=== PATIENT | male | born 1975 | race African-American/Black ===

== ENCOUNTER → 2016-11-05 | Outpatient (CLI) | payer OTHER ==
--- NOTE | 2016-11-05 11:25 | MR ---
EXAMINATION TYPE: MR shoulder RT wo con DATE OF EXAM: 11/05/2016 11:17 AM COMPARISON: NONE HISTORY: Right shoulder pain, injury TECHNIQUE: Multiplanar, multisequence imaging of the right shoulder is performed without contrast. FINDINGS: Rotator Cuff: At the insertion of the infraspinatus tendon there is a complete through thickness tear measuring approximately 12 x 3 mm. Diffuse abnormal signal seen throughout the distal margin of the conjoined portion of the tendon of the supraspinatus and infraspinatus tendons. There is a through th ickness tear involving the insertion of the anterior fibers of the supraspinatus tendon measuring 7 m m. Acromioclavicular Joint: Mild hypertrophic change of the AC joint is seen. There is mild mass effect and impingement. Glenohumeral Joint: Small glenohumeral joint effusion is seen. Inferior glenohumeral ligament intact. Labrum: Findings are suggestive of a SLAP tear. Biceps Tendon: The long head of biceps is in normal location within bicipital groove. Increased fluid surrounding the bicipital tendon compatible with bicipital tendinosis. Intrasubstance signal seen in the biceps anchor suggestive of tendinosis. No retraction or through thickness tear Bone marrow signal: 1 cm focal area of marrow edema involving the greater tuberosity compatible with bone contusion. Other: No additional significant abnormality is appreciated. IMPRESSION: 1. Diffuse tendinosis of the supra and infraspinatus tendons with through thickness tear involving th e distal margin of the infraspinatus and supraspinatus tendons as discussed above. 2. SLAP tear. 3. bicipital tendinosis for hypertrophic change of the AC joint with mild impingement
== END | disposition home or self-care (01) ==
LOC: RADMRIMAIN 10:43
PROVIDERS: ATTEND Internal Medicine
DX: S43.431A Superior glenoid labrum lesion of right shoulder, initial encounter (principal); M75.101 Unspecified rotator cuff tear or rupture of right shoulder, not specified as traumatic; M75.21 Bicipital tendinitis, right shoulder; M25.811 Other specified joint disorders, right shoulder; X58.XXXA Exposure to other specified factors, initial encounter

== ENCOUNTER → 2016-11-27 | Outpatient (CLI) | payer OTHER ==
--- NOTE | 2016-11-28 15:43 | MR ---
EXAMINATION TYPE: MR shoulder LT wo con DATE OF EXAM: 11/27/2016 3:25 PM COMPARISON: 11/05/2016 right shoulder MR. HISTORY: Left shoulder pain TECHNIQUE: Multiplanar, multisequence imaging of the left shoulder is performed without contrast. FINDINGS: Rotator Cuff: There is a full-thickness tear of the supraspinatus and infraspinatus tendons with extr insic tendinous and muscular hyperintensity on fluid sensitive sequences related to associated inflam mation/tendinopathy. There is retraction of the supraspinatus of approximately 4.6 cm with few distal fibers seen at the footplate of the humeral head, discontinuous with the proximal retracted musculot endinous junction of the supraspinatus. There is no evidence of overt muscular atrophy. Joint fluid i s seen within the subacromial bursa and subcoracoid bursa. The full-thickness tear of the infraspinat us is retracted approximately 4 cm also with hyperintensity of the muscle belly related to myositis. Minimal signal hyperintensity is seen within the anterior and proximal fibers of the teres minor like ly related to a reactive myositis from the adjacent infraspinatus full-thickness tear. Similar appear ance is seen of the more anterior and superficial fibers of the subscapularis relating to mild myosit is. Acromioclavicular Joint: Acromioclavicular joint is overall unremarkable with no evidence of capsular hypertrophy or subchondral cyst formation. No marginal osteophytes are seen. Acromioclavicular ligam ents are intact. Glenohumeral Joint: There is no evidence of joint space narrowing. Joint fluid is seen again within t he subacromial/subdeltoid and subcoracoid bursa. Labrum: Overall the labrum appears intact. Biceps anchor also appears intact in its superior aspect. Biceps Tendon: Biceps tendon appears intact and inserts in the biceps anchor. Bone marrow signal: Bone marrow signal is grossly unremarkable. Other: No additional significant abnormality is appreciated. Humeral head is high riding related to t he rotator cuff tears. IMPRESSION: 1. Full-thickness tears of the supraspinatus and infraspinatus with retraction and myositis. 2. Mild myositis of the teres minor and subscapularis. 3. Subdeltoid/subacute subacromial and subcoracoid fluid which may relate to bursitis.
== END ==
LOC: RADMRIMAIN 14:48
PROVIDERS: ATTEND Orthopaedic Surgery
DX: M75.102 Unspecified rotator cuff tear or rupture of left shoulder, not specified as traumatic (principal); M60.9 Myositis, unspecified

== ENCOUNTER → 2016-11-30 | Outpatient (CLI) | payer OTHER ==
[2016-11-30 13:46] LABS: Basophils % (A) 0 %; CH 31.3; CHCM 33.6; Eosinophils # (A) 0.1 k/uL (0-0.7); Eosinophils % (A) 1 %; HCT 43.7 % (39.0-53.0); HGB 14.7 gm/dL (13.0-17.5); Luc # (Auto) 0.27; Luc % (Auto) 3; Lymphocytes % (A) 45 %; MCH 31.6 pg (25.0-35.0); MCHC 33.7 g/dL (31.0-37.0); MCV 93.7 fL (80.0-100.0); Mean Platelet Volume 6.5; Monocytes # (A) 0.4 k/uL (0-1.0); Monocytes % (A) 5 %; Neutrophils # (A) 4.1 k/uL (1.3-7.7); Neutrophils % (A) 46 %; RBC 4.66 m/uL (4.30-5.90); RDW 12.8 % (11.5-15.5); WBC 8.9 k/uL (3.8-10.6); WBC (Perox) 9.24
[2016-11-30 13:50] LABS: Potassium 4.2 mmol/L (3.5-5.1)
== END | disposition home or self-care (01) ==
LOC: LABPAT 13:14
PROVIDERS: ATTEND Orthopaedic Surgery
DX: Z01.818 Encounter for other preprocedural examination (principal); M75.41 Impingement syndrome of right shoulder
CPT/HCPCS: 80051; 85025

== ENCOUNTER 2016-12-09 05:48 | Day surgery (SDC) | payer OTHER ==
[2016-12-08 08:30] VITALS: BMI 25.0
--- NOTE | 2016-12-08 16:42 | HP ---
DATE OF ADMISSION: 12/09/2016 Lisandro Rachel is a 41-year-old patient seen with progressive right shoulder pain. After having treatment options discussed, he elected to proceed with right shoulder arthroscopy. Consent regarding the procedure was obtained. His past medical history is noncontributory. His past surgical history is noncontributory. DAILY MEDICATIONS: [place] as needed. ALLERGIES: NONE REPORTED. SOCIAL HISTORY: Patient denies current tobacco use. PHYSICAL EVALUATION OF THE RIGHT SHOULDER: Flexion 90 degrees, abduction 90 degrees, external rotation 50 degrees with pain and weakness. Tenderness along the anterolateral acromion and rotator cuff insertion. Impingement positive 90 degrees. Drop-arm sign is positive. Distal neurovascular exam is intact. Right shoulder radiographs revealed a type II anterior acromion, acromioclavicular joint osteoarthritis. An MRI of the right shoulder revealed a rotator cuff tear along with labral tear and biceps tendinitis. IMPRESSION: Right shoulder impingement with rotator cuff tear, labral tear and biceps tendinitis. PLAN: Right shoulder arthroscopy with subacromial decompression, probable arthroscopic rotator cuff repair, probable biceps tenotomy, possible Chelsea and debridement.
[~2016-12-09 05:48] MED LIST: DEXAMETHASONE SOD PHOSPHATE 10 MG/ML 1 ML VIAL IV ONE; HYDROmorphone 1 MG/ML 1 ML SYRINGE IVP PRN; LACTATED RINGERS 1,000 ML IV SCH; LIDOCAINE 1% 20 ML VIAL (10MG/ML) FOR IV START INTRADERMA PRN; MIDAZOLAM 2 MG/2 ML VIAL IV PRN; ONDANSETRON 4 MG/2 ML VIAL IVP ONE; SCOPOLAMINE 1.5MG/72HR PATCH TRANSDERM ONE; ceFAZolin 2 GM in SODIUM CHLORIDE 0.9% 100 ML IVPB ONE
[2016-12-09] MEDS ORDERED: fentaNYL (PF) 50 MCG/ML 2 ML AMP IV ONE (07:00)
[2016-12-09] MEDS ORDERED: LIDOCAINE 2%-EPI 1:100,000 20 ML VIAL ONE (07:28)
[2016-12-09] MEDS ORDERED: NEOSTIGMINE 1 MG/ML 10 ML VIAL ONE (07:28)
[2016-12-09] MEDS ORDERED: GLYCOPYRROLATE 0.2 MG/ML 2 ML VIAL ONE ×2 (07:28)
[2016-12-09] MEDS ORDERED: SUCCINYLCHOLINE CHLORIDE 100 MG/5 ML SYR IV ONE (07:28)
[2016-12-09] MEDS ORDERED: fentaNYL (PF) 50 MCG/ML 2 ML AMP ONE (07:28)
[2016-12-09] MEDS ORDERED: PROPOFOL 10 MG/ML 20 ML VIAL IV ONE (07:28)
[2016-12-09] MEDS ORDERED: MIDAZOLAM 2 MG/2 ML VIAL ONE (07:28)
[2016-12-09] MEDS ORDERED: ROCURONIUM BROMIDE 10 MG/ML 10 ML VIAL IV ONE (07:28)
[2016-12-09] MEDS ORDERED: ROPIVACAINE 5 MG/ML 30 ML VIAL ONE (07:28)
[2016-12-09] MEDS ORDERED: LIDOCAINE 1% INJ 10MG/ML (20 ML MDV) ONE ×2 (07:28)
--- NOTE | 2016-12-09 07:59 | P.ONQ ---
Anesthesiology Proc Note - PNB - Peripheral Nerve Block Performed Right Interscalene Single Time Out Performed: Yes Indication: Acute Post-Operative Pain, Analgesia Specifically requested for management of pain by DrRyan: Bayron Aguilar Sedation Type: Awake Preparation: Sterile Prep Position: Supine Catheter: None Needle Types: Other (see comment) (stimuplex) Needle Size: 50mm (2") Needle Gauge: Other (see comment) (22 ga) Injectate: Other (see comment) (lidocaine 2% 10cc Ropivicaine 0.5% 10cc) Adjunct: Epinephrine (see comment for dilution ratio) (1:200,000) Blood Aspirated: No Pain Paresthesia on Injection Noted: No Resistance on Injection: Normal Events: Uneventful and Well Tolerated
--- NOTE | 2016-12-09 10:14 | P.OP ---
Date of Procedure: 12/09/16 Preoperative Diagnosis: Right shoulder impingement Postoperative Diagnosis: 1. Right shoulder rotator cuff tear 2. Right shoulder impingement 3. Right shoulder acromioclavicular joint osteoarthritis 4. Right shoulder partial biceps tendon tear 5. Right shoulder superior labral tear Procedure(s) Performed: 1. Right shoulder arthroscopic rotator cuff repair 2. Right shoulder arthroscopic subacromial decompression 3. Right shoulder arthroscopic Chelsea procedure 4. Right shoulder arthroscopic biceps tenotomy 5. Right shoulder arthroscopic debridement labral tear Implants: 6-valeris peek anchors Anesthesia: GETA, regional (Shoulder block) Surgeon: Bayron Aguilar [place] [employer] Leader #1: Sergio Boswell Estimated Blood Loss (ml): 10 Pathology: none sent Condition: stable Disposition: PACU Indications for Procedure: 41-year-old patient seen with right shoulder pain. After having treatment options discussed elected to proceed with arthroscopy. Operative Findings: See description of procedure Description of Procedure: Patient underwent a shoulder block by department of anesthesia. The patient was then taken to the operative suite. The patient underwent a general anesthetic by the department of anesthesia. The patient was placed into a lateral position and secured. There was appropriate padding of the bony prominence. Right shoulder was then prepped and draped in normal sterile orthopedic fashion. We placed the extremity in 10 pounds of longitudinal traction. A posterior incision was now made for a posterior working portal site. The trocar and cannula were inserted into the glenohumeral joint. Arthroscopy was initiated. Spinal needle was now inserted anteriorly, to ascertain the anterior working portal site. An incision was now made in that area, a trocar was inserted followed by a probe. There was an obvious large rotator cuff tear visualized from glenohumeral side. There was partial tearing long head biceps tendon. There was tearing of the anterior superior labrum present. There were grade 1/2 chondromalacia changes of glenohumeral. No loose bodies. I performed an arthroscopic biceps tenotomy. I debrided the labral tear down to stable tissue. The residual labrum was probed and found to be stable. Instruments were now removed from glenohumeral joint. Utilizing the posterior working portal site, the trocar and cannula were inserted into the subacromial space. Arthroscopy initiated. I made an incision 2 fingerbreadths lateral to the acromion. I introduced my trocar followed by my ArthroCare ablator. I now began ablating thick subacromial bursal tissue, which exposed the undersurface of the anterior acromion. This was diminished subacromial space. There was a very prominent anterior acromion. A motorized bur was introduced and a subacromial decompression was performed. I also excised some osteophytes off the inferior aspect of the distal clavicle. The AC joint was visualized and noted to be fairly arthritic. Our motorized bur was introduced in the anterior portal site and a Chelsea procedure was performed without difficulty, decompressing the AC joint nicely. I turned my attention to the rotator cuff. There was a large rotator cuff tear measuring somewhere between 3-4 cm but mobile over the footprint. I noted that the posterior portion had a [id number] type tear. I abraded the footprint with a motorized bur. I now created 2 additional typecasting machine operator he portal sites off the lateral acromion to repair this very large/massive tear. I now repaired that posterior portion of the tear with 2 [id number] sutures. I now introduced 3 medial row anchors all with 2 sutures. I now passed all 12 limbs of suture through good bites of rotator cuff tendon. I now crisscrossed the sutures and introduced 3 lateral anchors bringing the tendon over the footprint and compressing it very nicely. All residual suture limbs were clipped. The repair was probed and noted to be very stable. I injected 1 mL of Allogen into the footprint repair site. Instruments now removed from the portal sites. All portal sites were approximated with nylon suture. Sterile dressings were applied followed by a shoulder immobilizer. Tyler STALLINGS assisted with the procedure. The patient was awakened, transferred to a bed, and taken to recovery in stable condition.
[2016-12-09 10:22] VITALS: TEMP 96.9
[2016-12-09] MEDS ORDERED: MEPERIDINE 50 MG/ML SYRINGE IVP ONE (10:39)
[2016-12-09 10:49] VITALS: RESP 16
[2016-12-09] MEDS ORDERED: LACTATED RINGERS 1,000 ML IV ONE (10:53)
[2016-12-09] MEDS ORDERED: ONDANSETRON 4 MG/2 ML VIAL IVP ONE (11:02)
[2016-12-09 11:57] VITALS: BP 138/93; PULSE 60
== END 2016-12-09 13:03 | disposition home or self-care (01) ==
LOC: OR 05:48
PROVIDERS: ATTEND Orthopaedic Surgery
DX: M75.101 Unspecified rotator cuff tear or rupture of right shoulder, not specified as traumatic (principal); M75.41 Impingement syndrome of right shoulder; M19.011 Primary osteoarthritis, right shoulder; S46.112A Strain of muscle, fascia and tendon of long head of biceps, left arm, initial encounter; S43.431A Superior glenoid labrum lesion of right shoulder, initial encounter; X58.XXXA Exposure to other specified factors, initial encounter; Z91.012 Allergy to eggs; Z79.899 Other long term (current) drug therapy
CPT/HCPCS: 64415; 29824; 29826; 29827; C1713 ×3; J2250; J1100; J2710; J2175; J0690; J2405; J2001; J3010; J2795; J0330; J2704

== ENCOUNTER 2017-01-23 01:56 | Emergency (ER) | payer OTHER ==
[2017-01-23 02:02] VITALS: TEMP 97.3
[2017-01-23] MEDS ORDERED: METOCLOPRAMIDE 5 MG/ML 2 ML VIAL IM STA (02:12)
[2017-01-23] MEDS ORDERED: MORPHINE SULFATE 4 MG/ML SYRINGE IM STA (02:12)
--- NOTE | 2017-01-23 03:49 | CT ---
EXAM: CT Head Without Intravenous Contrast CLINICAL HISTORY: Headache, seizures. History of strokes. TECHNIQUE: Axial computed tomography images of the head/brain without intravenous contrast. CTDI is 57.40 mGy and DLP is 1098.80 mGy-cm. This CT exam was performed using one or more of the following dose reduction techniques: automated exposure control, adjustment of the mA and/or kV according to patient size, and/or use of iterative reconstruction technique. Coronal and sagittal reformatted images were created and reviewed. COMPARISON: No relevant prior studies available. FINDINGS: Brain: No acute intracranial hemorrhage, mass effect, midline shift or herniation. Ventricles: No evidence of hydrocephalus. Bones/joints: Mild chronic appearing deformity of the left nasal bone. No acute fracture. Soft tissues: Unremarkable. Sinuses: Essentially clear. Mastoid air cells: Unremarkable as visualized. No mastoid effusion. IMPRESSION: No acute intracranial hemorrhage or mass effect.
--- NOTE | 2017-01-23 03:52 | ED ---
Headache HPI - General Chief Complaint: Headache Stated Complaint: Headache Time Seen by Provider: 01/23/17 02:13 Mode of arrival: wheelchair Limitations: no limitations - History of Present Illness MD Complaint: headache Onset/Timin -: days(s) Onset Description: gradual Location: frontal Severity: severe Quality: aching Consistency: constant Improves With: nothing Worsens With: none Context: occurred at rest - Related Data Home Medications Medication Instructions Recorded Confirmed Cetirizine HCl [Zyrtec] 10 mg PO DAILY 12/08/16 12/08/16 Hydrocodone/Acetaminophen [[place] 1 tab PO Q6HR PRN 12/08/16 12/08/16 7.5-325] Previous Rx's Medication Instructions Recorded HYDROcodone/APAP 7.5-325MG [[facility] 1 each PO Q6HR PRN #40 tab 12/09/16 7.5] Allergies Allergy/AdvReac Type Severity Reaction Status Date / Time cat dander Allergy Unknown Verified 01/23/17 02:03 mold Allergy Unknown Verified 01/23/17 02:03 soy Allergy Unknown Verified 01/23/17 02:03 eggs Allergy Nausea & Uncoded 01/23/17 02:03 Vomiting & Diarrhea tape Allergy Swelling Uncoded 01/23/17 02:03 Review of Systems ROS Statement: Those systems with pertinent positive or pertinent negative responses have been documented in the HPI. ROS Other: All systems not noted in ROS Statement are negative. Constitutional: Denies: fever, weakness Eyes: Denies: eye pain, vision change ENT: Denies: hearing loss, congestion Respiratory: Denies: cough, dyspnea, wheezes Cardiovascular: Denies: chest pain, syncope Gastrointestinal: Denies: abdominal pain Musculoskeletal: Denies: back pain Skin: Denies: rash Neurological: Reports: headache. Denies: weakness, numbness, paresthesias, confusion Past Medical History Additional Past Medical History / Comment(s): frequent migranes r/t allergies, hypoglycemia History of Any Multi-Drug Resistant Organisms: None Reported Past Surgical History: Appendectomy, Orthopedic Surgery Additional Past Surgical History / Comment(s): right rotator cuff Past Psychological History: Anxiety Smoking Status: Former smoker Past Alcohol Use History: Rare Past Drug Use History: Marijuana General Exam Limitations: no limitations General appearance: alert, in no apparent distress Head exam: Present: atraumatic, normocephalic Eye exam: Present: normal appearance. Absent: scleral icterus, conjunctival injection ENT exam: Present: normal oropharynx, TM's normal bilaterally Neck exam: Present: normal inspection, full ROM GI/Abdominal exam: Present: soft Extremities exam: Present: normal inspection, normal capillary refill. Absent: pedal edema, calf tenderness Neurological exam: Present: alert, oriented X3, CN II-XII intact. Absent: motor sensory deficit Skin exam: Present: warm, dry, intact, normal color. Absent: rash Course Vital Signs 01/23/17 01/23/17 01:57 04:00 Temperature 97.3 F L Pulse Rate 49 L 70 Respiratory 20 16 Rate Blood Pressure 138/80 118/66 O2 Sat by Pulse 99 Oximetry Disposition Clinical Impression: Headache Disposition: HOME SELF-CARE Condition: Good Instructions: Acute Headache (ED) Referrals: Keturah Ruiz MD [Primary Care Provider] - 1-2 days Amanda Hubbard MD [STAFF PHYSICIAN] - 1-2 days
[2017-01-23 04:02] VITALS: BP 118/66; PULSE 70; RESP 16
[2017-01-23] MEDS ORDERED: diphenhydrAMINE 50 MG/ML 1 ML VIAL IM STA (04:02)
== END 2017-01-23 04:11 | disposition home or self-care (01) ==
LOC: EC 01:56
DX: R51 Headache (principal); Z87.891 Personal history of nicotine dependence; Z79.899 Other long term (current) drug therapy; Z91.048 Other nonmedicinal substance allergy status; Z91.012 Allergy to eggs; Z91.013 Allergy to seafood; Z86.69 Personal history of other diseases of the nervous system and sense organs
CPT/HCPCS: 70450; 99283; 96372 ×3; J2270; J1200; J2765

== ENCOUNTER → 2019-10-05 | Outpatient (CLI) | payer OTHER ==
--- NOTE | 2019-10-06 17:21 | US ---
EXAMINATION TYPE: US scrotum with doppler. Grayscale and color Doppler Duplex imaging performed of cm bustos scrotum. DATE OF EXAM: 10/05/2019 COMPARISON: NONE CLINICAL HISTORY: R68.89 Other general symptoms and signs. Patient stated has right scrotal pain and swelling x 2 months EXAM MEASUREMENTS: TESTICLES: Right Testicle: 4.7 x 2.8 x 2.3 cm Left Testicle: 3.9 x 2.2 x 1.6 cm EPIDIDYMIS HEAD: Right Epididymis: 1.3 x 0.9 x 1.3 cm Left Epididymis: 1.0x 1.0 x 0.9 cm Doppler performed to assess for testicular vascularity; good bilateral color flow and waveforms are s een. There is no evidence of testicular torsion. Presence of hydroceles: small hydrocele noted superior right scrotal sac = 1.7 x 1.5 x 1.1cm Right epididymal head cyst noted = 0.3 x 0.3 x 0.2cm. Multiple left epididymal head cysts seen with largest =0.2 x 0.4 x 0.2cm. Presence of varicoceles: Bilateral varicoceles noted as some veins measure greater than normal 2.5mm with and without Valsalva Maneuver. IMPRESSION: 1. Bilateral varicoceles. 2. Small right hydrocele 3. Bilateral epididymal cysts
== END | disposition home or self-care (01) ==
LOC: RADUSWWP 14:45
PROVIDERS: ATTEND Internal Medicine
DX: I86.1 Scrotal varices (principal); N43.3 Hydrocele, unspecified; N50.3 Cyst of epididymis
CPT/HCPCS: 76870; 93975

== ENCOUNTER → 2021-01-14 | Outpatient (CLI) | payer OTHER ==
[2021-01-14 12:53] VITALS: BP 164/84; PULSE 70; RESP 18; TEMP 98.4
--- NOTE | 2021-01-14 13:32 | P.PAINCN ---
History of Present Illness - Reason for Consult Consult date: 01/14/21 - History of Present Illness This is 45 years old male with a chronic history of severe neck pain and headaches started several years ago but the intensity of the headache increased over the last few months, it is constant interfere with the quality of life he tried different kind of pain medication without any relief and he tried physical therapy without relief, previously he had the occipital nerve block which was done several years ago which helped his headaches significantly, patient denies any motor or sensory deficit he denies any change in the bowel movement or urination he denies any numbness or tingling sensation in the upper extremities, patient was evaluated by neurologist Dr. Lang, and she referred him to have bilateral occipital nerve block, Past Medical History Past Medical History: GERD/Reflux Additional Past Medical History / Comment(s): "Nightly severe migraines since starting 1 day after receiving first Moderna Vaccine." Frequent migranes r/t allergies, hypoglycemia. History of Any Multi-Drug Resistant Organisms: None Reported Past Surgical History: Appendectomy, Orthopedic Surgery Additional Past Surgical History / Comment(s): Right rotator cuff repair, removal of benign tumors from right chest and left hip. Past Anesthesia/Blood Transfusion Reactions: No Reported Reaction, Motion Sickness Smoking Status: Current some day smoker, Light tobacco smoker - Past Family History Mother Family Medical History: Cancer Additional Family Medical History / Comment(s): Pancreatic Cancer. Medications and Allergies Home Medications Medication Instructions Recorded Confirmed Type SUMAtriptan SUCCINATE [Imitrex] 50 mg PO DIRECTED PRN 01/13/21 01/14/21 History Sumatriptan Spary 1 spray NASAL DIRECTED PRN 01/13/21 01/14/21 History Vit C/E/Zn/Coppr/Lutein/Zeaxan 1 each PO DAILY 01/13/21 01/14/21 History [Preservision Areds 2 Softgel] Allergies Allergy/AdvReac Type Severity Reaction Status Date / Time alcohol Allergy Cough Verified 01/13/21 14:58 cat dander Allergy Unknown Verified 01/13/21 13:04 latex Allergy Blisters Verified 01/13/21 13:29 mold Allergy Unknown Verified 01/13/21 13:04 Penicillins Allergy Migraines Verified 01/13/21 14:58 soy Allergy Unknown Verified 01/13/21 13:04 eggs Allergy Nausea & Uncoded 01/13/21 13:04 Vomiting & Diarrhea tape Allergy Swelling Uncoded 01/13/21 13:04 Physical Exam Vitals: Vital Signs Temp Pulse Resp BP Pulse Ox 01/14/21 12:47 98.4 F 70 18 164/84 98 Physical Examinations : -Constitutiona : Cooperative , not in acute distress . -HEENT : nech : supple , no Lymphadenopathy , normal thyroid size . : eyes : no ptosis , no icterus, no photophobia . - neurologic : Cranial nerve II to XII intact , no focal neurological deffecit . -psychatric : alert , oriented X 3 , appropriate affect , intact judgment and insight . -Lymphatic : no Lymphadenopathy . - musculoskeltal : Cervical Spine motor stregnth in the deltoid and biceps, normal right side , normal Left side motor stregnth biceps and the wrist extensors normal right side ,normal left side . motor stregnth in the triceps muscle . normal Right side , normal Left side deep tendon reflexes normal at the biceps , normal at Brachioradialis , normal at triceps. cervical facet loading test: Positive Bilaterally Severe tenderness over the occipital nerve bilaterally Lumber spine moter stegnth lower extremities ,thigh and legs 5/5 Right side , 5/5 Left side Results Comments: MRI of the brain =normal Assessment and Plan Plan: Assessment and plan=1-bilateral occipital neuralgia. 2-cervicogenic headache. 3-cervical spondylosis with cervical facet arthropathy. Patient will be good candidate to have bilateral occipital nerve block, Time with Patient: Greater than 30 PQRS Measure Charge Sheet Measure #130: Documentation of Current Meds in Medical Chart: Patient's medications documented in chart Measure #226: Tobacco Use: Screen & Cessation Intervention: Pt not a tobacco user Measure #111: Pneumonia Vaccination: Pneumococcal vaccine NOT administered or previously given Measure #47: Advance Care Plan: Advance care planning discussed & documented, pt chose/unable to give Measure #412: Opioid Treatment Agreement: No documentation of signed opioid treatment agreement Measure #408: Opioid Therapy Follow-up Evaluation: Patient had NO f/u eval minimum every 3 months during opioid therapy Measure #317: Preventitive Care & Scrn High Bld Press & F/U: Pre-hypertensive or hypertensive BP documented, pt will f/u with PCP Measure #128: Body Mass Index (BMI) Screening & Follow-up: BMI documented within normal parameters Measure #131: Pain Assessment & Follow-up: Pain positive & plan documented, Follow-up scheduled Measure #431: Unhealthy Alcohol Use Preventative Care & Scrn: Patient not identified as an unhealthy alcohol user PQRS Narrative: Smoking Status Former smoker Blood Pressure 164/84 Pain Intensity [Head] 2 Scale Used Numeric (1 - 10) Hx Alcohol Use (MH) No Home Medications: Ambulatory Orders SUMAtriptan SUCCINATE [Imitrex] 50 mg PO DIRECTED PRN 01/13/21 Sumatriptan Spary 1 spray NASAL DIRECTED PRN 01/13/21 Vit C/E/Zn/Coppr/Lutein/Zeaxan [Preservision Areds 2 Softgel] 1 each PO DAILY 01/13/21
== END ==
LOC: PNWHC3 12:36
PROVIDERS: ATTEND Specialist
DX: M47.812 Spondylosis without myelopathy or radiculopathy, cervical region (principal); M54.81 Occipital neuralgia; F17.200 Nicotine dependence, unspecified, uncomplicated; Z88.0 Allergy status to penicillin; Z91.048 Other nonmedicinal substance allergy status; Z91.040 Latex allergy status; Z91.012 Allergy to eggs; Z91.018 Allergy to other foods; Z91.09 Other allergy status, other than to drugs and biological substances
CPT/HCPCS: 99211

== ENCOUNTER 2021-01-27 11:19 | Day surgery (SDC) | payer OTHER ==
[2021-01-23 15:00] VITALS: BMI 24.4
[~2021-01-27 11:19] MED LIST changes: -DEXAMETHASONE SOD PHOSPHATE 10 MG/ML 1 ML VIAL IV ONE; -HYDROmorphone 1 MG/ML 1 ML SYRINGE IVP PRN; -LIDOCAINE 1% 20 ML VIAL (10MG/ML) FOR IV START INTRADERMA PRN; -MIDAZOLAM 2 MG/2 ML VIAL IV PRN; -ONDANSETRON 4 MG/2 ML VIAL IVP ONE; -SCOPOLAMINE 1.5MG/72HR PATCH TRANSDERM ONE; -ceFAZolin 2 GM in SODIUM CHLORIDE 0.9% 100 ML IVPB ONE
[2021-01-27 12:43] VITALS: TEMP 97.5
[2021-01-27] MEDS ORDERED: LIDOCAINE 1% (10MG/ML) FOR IV START INTRADERMA ONE (12:46)
[2021-01-27] MEDS ORDERED: fentaNYL (PF) 50 MCG/ML 2 ML AMP IV ONE (12:46)
[2021-01-27] MEDS ORDERED: TRIAMCINOLONE ACETONIDE 40 MG/ML 1 ML VIAL ONE (13:10)
[2021-01-27] MEDS ORDERED: MIDAZOLAM 2 MG/2 ML VIAL ONE (13:10)
[2021-01-27] MEDS ORDERED: ROPIVACAINE 5MG/ML 20ML VIAL ONE (13:10)
--- NOTE | 2021-01-27 13:27 | P.PCN ---
Date of Procedure: 01/27/21 Surgeon: Su Parra Pathology: none sent Condition: stable Disposition: PACU Description of Procedure: Pre-operative diagnosis: 1- B/L occipital neuralgea Post Operative Diagnosis 1- B/L occipital neuralgea Procedure: 1- B/L occipital nerve block ANESTHESIA: IV Moderate conscious sedation EBL: Minimal PROCEDURE INDICATION: The patient with neck pain and headache secondary to occipital neuralgea unresponsive to conservative treatments. PROCEDURE DESCRIPTION / TECHNIQUE: The patient was seen and identified in the preoperative area. Risks, benefits, complications, and alternatives were discussed with the patient, the patient agreed to proceed with the procedure and signed the consent. IV was started. Vital signs remained stable throughout the procedure. Patient was taken to the OR and time out was completed. The patient was placed in the prone position on the procedure table. A pillow was placed under the patients chest to increase the cervical interlaminar space. The cervical area and right occiptial area were prepped with chloraprep. Critical pause was taken. Vital signs were closely monitored during the procedure. Conscious sedation was used during the procedure to decrease patients anxiety. The the occipital exuberance and superior nuchal line were identified on the right side of the occiput. The greater occipital nerve location was estimated to be medial to the occipital artery I used 25-gauge 1-1/2 inch needle to go through the skin and infiltrate 1.5 MLS of a solution made up of 5 MLS Ropivacaine 0.5% +40 mg of Kenalog. The opposite side was done in the same manner. The total dose of Kenalog used for this procedure was 20 mg only. Patient tolerated procedure well.
[2021-01-27] MEDS ORDERED: IV FLUID CONTINUATION 1,000 ML IV ONE (13:31)
[2021-01-27 13:34] VITALS: RESP 16
[2021-01-27 13:43] VITALS: BP 134/87; PULSE 77
== END 2021-01-27 14:04 | disposition home or self-care (01) ==
LOC: ORPAIN 11:19
PROVIDERS: ATTEND Anesthesiology
DX: M54.81 Occipital neuralgia (principal); Z88.0 Allergy status to penicillin; Z91.040 Latex allergy status
CPT/HCPCS: 64405; J2250; J3301; J3010; J2795

== ENCOUNTER → 2021-02-10 | Day surgery (SDC) | payer OTHER ==
[2021-02-05 14:37] VITALS: BMI 24.7
[~2021-02-10] MED LIST changes: +ROPIVACAINE 5MG/ML 20ML VIAL ONE; +methylPREDNISolone ACETATE 40 MG/ML 1 ML VIAL ONE
[2021-02-10 12:21] VITALS: TEMP 98.3
--- NOTE | 2021-02-10 12:28 | P.PCN ---
Date of Procedure: 02/10/21 Procedure(s) Performed: Preoperative diagnoses= 1- Greater occipital neuralgia. 2-cervical spondylosis. 3-cervicogenic headache. Postoperative diagnoses= same as preoperative diagnosis. Procedure= Bilateral Greater occipital nerve block Anesthesia= local infiltration with ropivacaine 0.5% 4 mL only Estimated blood loss=minimal. Procedure indication= the patient had a history of severe chronic neck pain ,and headache, diagnosed with occipital neuralgia exam was positive for severe tenderness over the occipital nerve bilaterally, she will be a good candidate occipital nerve block, patient failed conservative management Procedure description= the patient was seen and identified in the preoperative holding area, risks and benefits and alternative of the procedure and possible complications discussed with the patient, and he agreed with the preceding, patient signed the consent, an IV was started, and vital signs were monitored and were stable throughout the procedure, patient was placed in the sitting position or table and the neck area was prepped and draped with a sterile fashion, vital signs were closely monitored during the procedure, 25-gauge needle advanced 1 inch lateral to the occipital protuberance on the right side, at the location of the right occipital nerve , then after negative aspiration for heme and CSF and there was no paresthesia during the injection, 6 ml of Robivacaine 0.5% and 40 mg of Depo-Medrol injected after negative aspiration, the needle removed, and the entire same procedure was repeated for the left Greater occipital nerve. Patient tolerated the procedure well without any complication, The patient returned to supine position after the back was cleaned and a Band- Aid applied, the patient transported to recovery room in stable condition and he was monitored for 30 minutes before he was discharged home and then patient was reexamined before going home and patient was discharged in stable condition and patient will follow up with the pain clinic in a few weeks.
[2021-02-10 12:48] VITALS: BP 137/89; PULSE 79; RESP 17
== END ==
LOC: ORPAIN 11:58
PROVIDERS: ATTEND Specialist
DX: M54.81 Occipital neuralgia (principal); Z91.012 Allergy to eggs; Z91.040 Latex allergy status
CPT/HCPCS: 64405; J1030; J2795

== ENCOUNTER → 2021-04-01 | Outpatient (CLI) | payer OTHER ==
[2021-04-01 13:40] VITALS: BP 134/82; PULSE 65; RESP 18
--- NOTE | 2021-04-01 13:45 | P.PAINPG ---
Subjective Progress Note Date: 04/01/21 This is 45 years old male with a chronic history of severe neck pain and headaches started several years ago but the intensity of the headache increased over the last few months, it is constant interfere with the quality of life he tried different kind of pain medication without any relief and he tried physical therapy without relief, previously he had the occipital nerve block which was done several years ago which helped his headaches significantly, patient denies any motor or sensory deficit he denies any change in the bowel movement or urination he denies any numbness or tingling sensation in the upper extremities, patient was evaluated by neurologist Dr. Lang, and she referred him to have b ilateral occipital nerve block which he has had x2 Patient has had significant pain relief with these procedures. In the past he would have 30-40 migraines a month, since our procedures he has got a full month and only had one migraine. He is able to do more and spend more time with his kids this will work out. He is very happy with the injections. Physical Examinations : -Constitutiona : Cooperative , not in acute distress . -HEENT : nech : supple , no Lymphadenopathy , normal thyroid size . : eyes : no ptosis , no icterus, no photophobia . - neurologic : Cranial nerve II to XII intact , no focal neurological deffecit . -psychatric : alert , oriented X 3 , appropriate affect , intact judgment and insight . -Lymphatic : no Lymphadenopathy . - musculoskeltal : Cervical Spine motor stregnth in the deltoid and biceps, normal right side , normal Left side motor stregnth biceps and the wrist extensors normal right side ,normal left side . motor stregnth in the triceps muscle . normal Right side , normal Left side deep tendon reflexes normal at the biceps , normal at Brachioradialis , normal at triceps. cervical facet loading test: Positive Bilaterally Severe tenderness over the occipital nerve bilaterally Lumber spine moter stegnth lower extremities ,thigh and legs 5/5 Right side , 5/5 Left side Results Comments: MRI of the brain =normal Assessment and Plan Plan: Assessment and plan=1-bilateral occipital neuralgia. 2-cervicogenic headache. 3-cervical spondylosis with cervical facet arthropathy. I told him he can call us whenever he needs us and we can repeat the occipital nerve blocks as he needs I have spent 24 minutes on patient care today. The time was used to review the medical records including relevant urine studies and prescription history, review of the available imaging, evaluation and examination of the patient, coordination of care with the medical staff and if applicable referring physicians, as well as creation of the medical record. PQRS Measure Charge Sheet Measure #130: Documentation of Current Meds in Medical Chart: Patient's medications documented in chart Measure #226: Tobacco Use: Screen & Cessation Intervention: Pt not a tobacco user Measure #111: Pneumonia Vaccination: Pneumococcal vaccine NOT administered or previously given Measure #47: Advance Care Plan: Advance care planning discussed & documented, pt chose/unable to give Measure #412: Opioid Treatment Agreement: No documentation of signed opioid treatment agreement Measure #408: Opioid Therapy Follow-up Evaluation: Patient had NO f/u eval minimum every 3 months during opioid therapy Measure #317: Preventitive Care & Scrn High Bld Press & F/U: Pre-hypertensive or hypertensive BP documented, pt will f/u with PCP Measure #128: Body Mass Index (BMI) Screening & Follow-up: BMI documented within normal parameters Measure #131: Pain Assessment & Follow-up: Pain positive & plan documented, Follow-up scheduled Measure #431: Unhealthy Alcohol Use Preventative Care & Scrn: Patient not identified as an unhealthy alcohol user PQRS Measure Charge Sheet PQRS Narrative: Smoking Status Former smoker Pain Intensity [Occipital] 0 Scale Used Numeric (1 - 10) Home Medications: Ambulatory Orders SUMAtriptan SUCCINATE [Imitrex] 100 mg PO DIRECTED PRN 01/13/21 Vit C/E/Zn/Coppr/Lutein/Zeaxan [Preservision Areds 2 Softgel] 2 each PO DAILY 01/13/21 diphenhydrAMINE [Benadryl] 25 mg PO DAILY PRN 03/26/21 Controlled Substance Measures - Controlled Substance Measures Is patient prescribed a controlled substance at discharge?: No
== END | disposition home or self-care (01) ==
LOC: PNWHC3 13:29
PROVIDERS: ATTEND Anesthesiology
DX: M47.892 Other spondylosis, cervical region (principal); M46.92 Unspecified inflammatory spondylopathy, cervical region; M54.81 Occipital neuralgia; R51.9 Headache, unspecified
CPT/HCPCS: 99211

== ENCOUNTER 2021-07-21 06:07 | Day surgery (SDC) | payer OTHER ==
[~2021-07-21 06:07] MED LIST changes: -ROPIVACAINE 5MG/ML 20ML VIAL ONE; -methylPREDNISolone ACETATE 40 MG/ML 1 ML VIAL ONE
[2021-07-21 06:32] VITALS: TEMP 97.8
[2021-07-21] MEDS ORDERED: TRIAMCINOLONE ACETONIDE 40 MG/ML 1 ML VIAL ONE (07:09)
[2021-07-21] MEDS ORDERED: MIDAZOLAM 2 MG/2 ML VIAL ONE (07:09)
[2021-07-21] MEDS ORDERED: .fentaNYL (PF) 50 MCG/ML 2 ML AMP ONE (07:09)
[2021-07-21] MEDS ORDERED: ROPIVACAINE 5MG/ML 20ML VIAL ONE (07:09)
--- NOTE | 2021-07-21 07:23 | P.PCN ---
Date of Procedure: 07/21/21 Description of Procedure: Surgeon: Su Parra Pathology: none sent Condition: stable Disposition: PACU Description of Procedure: Pre-operative diagnosis: 1- B/L occipital neuralgea Post Operative Diagnosis 1- B/L occipital neuralgea Procedure: 1- B/L occipital nerve block ANESTHESIA: IV Moderate conscious sedation EBL: Minimal PROCEDURE INDICATION: The patient with neck pain and headache secondary to occipital neuralgea unresponsive to conservative treatments. PROCEDURE DESCRIPTION / TECHNIQUE: The patient was seen and identified in the preoperative area. Risks, benefits, complications, and alternatives were discussed with the patient, the patient agreed to proceed with the procedure and signed the consent. IV was started. Vital signs remained stable throughout the procedure. Patient was taken to the OR and time out was completed. The patient was placed in the prone position on the procedure table. The cervical area and right occiptial area were prepped with chloraprep. Critical pause was taken. Vital signs were closely monitored during the procedure. Conscious sedation was used during the procedure to decrease patients anxiety. The the occipital exuberance and superior nuchal line were identified on the right side of the occiput. The greater occipital nerve location was estimated to be medial to the occipital artery I used 25-gauge 1-1/2 inch needle to go through the skin and infiltrate 1.5 MLS of a solution made up of 5 MLS Ropivacaine 0.5% +40 mg of Kenalog. The opposite side was done in the same manner. The total dose of Kenalog used for this procedure was 20 mg only. Patient tolerated procedure well.
[2021-07-21] MEDS ORDERED: IV FLUID CONTINUATION 1,000 ML IV ONE (07:26)
[2021-07-21 07:31] VITALS: RESP 16
[2021-07-21 07:38] VITALS: BP 126/86; PULSE 71
== END 2021-07-21 08:00 | disposition home or self-care (01) ==
LOC: ORPAIN 06:07
PROVIDERS: ATTEND Anesthesiology
DX: M54.81 Occipital neuralgia (principal)
CPT/HCPCS: 64405; J2250; J3301; J3010; J2795

== ENCOUNTER 2021-11-25 10:45 | Day surgery (SDC) | payer OTHER ==
[2021-11-23 16:12] VITALS: BMI 28.5
[~2021-11-25 10:45] MED LIST changes: +DEXAMETHASONE SOD PHOSPHATE 4 MG/ML 1 ML VIAL IV ONE; +ONDANSETRON 4 MG/2 ML VIAL IVP ONE
[2021-11-25] MEDS ORDERED: ONDANSETRON 4 MG/2 ML VIAL ONE (11:38)
[2021-11-25] MEDS ORDERED: fentaNYL (PF) 50 MCG/ML 2 ML AMP IVP ONE (11:55)
[2021-11-25] MEDS ORDERED: MIDAZOLAM 2 MG/2 ML VIAL IVP ONE (11:55)
[2021-11-25] MEDS ORDERED: PROPOFOL 10 MG/ML 20 ML VIAL IV ONE (12:25)
[2021-11-25] MEDS ORDERED: LIDOCAINE 1% INJ 10MG/ML (20 ML MDV) ONE (12:25)
[2021-11-25] MEDS ORDERED: HYDROmorphone (PF) 1 MG/ML ONE (12:25)
[2021-11-25] MEDS ORDERED: ROPIVACAINE 5 MG/ML 30 ML VIAL ONE (12:25)
[2021-11-25] MEDS ORDERED: SODIUM CHLORIDE 0.9% (PF) 10 ML VIAL ONE (12:25)
--- NOTE | 2021-11-25 13:51 | XR ---
EXAMINATION TYPE: XR ankle limited LT, FL guidance operating room DATE OF EXAM: 11/25/2021 COMPARISON: NONE HISTORY: Open reduction internal fixation Fluoroscopy support supplied to the referring clinician. See dictated report from surgery, 1 intraop erative C-arm image submitted, 48 seconds fluoroscopy time
[2021-11-25 14:02] VITALS: TEMP 97
--- NOTE | 2021-11-25 14:07 | P.OP ---
Date of Procedure: 11/25/21 Preoperative Diagnosis: 1. Displaced, oblique fibular shaft fracture left ankle 2. Ruptured syndesmosis left ankle 3. Sprain of deltoid ligament left ankle Postoperative Diagnosis: 1. Displaced, oblique fibular shaft fracture left ankle 2. Ruptured syndesmosis left ankle Procedure(s) Performed: 1. Open reduction with internal fixation left fibular shaft fracture 2. Open repair syndesmosis left ankle Implants: Arthrex 8 hole one third tubular plate with (2) 3.5 locking screws and (2) 3.5 nonlocking screws Arthrex tight rope Anesthesia: SABINOA Surgeon: Jose Lima Estimated Blood Loss (ml): 3 Pathology: none sent Condition: stable Disposition: PACU Operative Findings: Once the fibular shaft fracture and syndesmosis were repaired there was no excessive medial joint space gapping Description of Procedure: Prior to the patient being brought to the operating room, anesthesia administered nerve block on the affected extremity. Then the patient was brought into the operating room and placed on table supine position. Timeout was taken to confirm correct patient identifiers, correct lateral of surgery, and correct procedure. When all staff in the room were in agreement with the timeout, the patient was induced and placed under general anesthesia. A well- padded tourniquet was placed on the left thigh, a wedge underneath the left hip to internally rotate the left leg and then the left leg was prepped and draped usual manner. The left leg was exsanguinated, the knee slightly flexed and the thigh tourniquet inflated to 250 mmHg. She was directed over the lateral aspect of the ankle where a linear incision was made in the location of the fibular fracture. Incision was deepened down to the subcutaneous tissue careful to identify, avoid, and retract any neurovascular structures and cauterize any bleeding vessels. Full-thickness dissection was carried down to the fibula and then full-thickness flaps were dissected off of the fibula to expose the fracture. Utilizing a combination of curettes and a Christopher, hematoma and soft tissue were evacuated from between the fracture fragments. Bone reduction forcep was then used to rotate and reduce the fracture in place. Fluoroscopy was used to confirm the position both on AP, mortise, and lateral views. All view showed anatomic reduction of the fracture. A K wire was then placed across the fracture to maintain the reduction. And then an 8 hole one third tubular plate was positioned over the fracture so that enough holes in the plate were available distal to the fracture for 2 screws to be placed as well as the tight rope anchor. Once position was confirmed it was temporarily fixated. A nonlocking screw was placed in the second the last proximal hole to help contour the plate. And then a 3.5 mm locking screw was placed in the most proximal hole the plate. Distally another 3.5 nonlocking screw was placed in the second to last hole in the plate. In the last distal hole the plate was filled with 3.5 mm locking screw. Fluoroscopic imaging confirmed maintenance of the reduction of the fracture as well as length of the fibula. The guidewire was removed and then stress was placed on the ankle joint under live fluoroscopy. External rotation and eversion was performed and the ankle that showed separation of the syndesmosis and gapping of the deltoid ligament. Therefore the decision was made to apply the Arthrex tight rope ancho r. The hole that was third to last on the distal portion of the plate was utilized for the placement of the tight rope. The drill hole was started in the lateral malleolus advanced from lateral to medial, with slight anterior angulation. Fluoroscopy was used to make sure that the drill bit was parallel to the floor. And then the drill was advanced until it broke through the medial tibial cortex. The Arthrex tight rope anchor was inserted into the drill hole on the lateral malleolus and advanced until the medial button was clear of the medial cortex of the tibia. The button was deployed and the manipulated to lie flat against the tibia. Then the glass inserter was removed and the suture released. With the ankle held in maximum dorsiflexion a large reduction forceps was applied to the ankle to keep the syndesmosis reduced. The amount of tensioning on the clamp was equivalent to described techniques. And then the lateral button of the tight rope was then firmly secured down to the fibular plate. The clamp was removed and then eversion and external rotation stress testing was performed and the ankle again, and this time there was no medial joint space gapping and no separation of the syndesmosis. At that point the reduction and fixation was complete. Therefore the wound is thoroughly irrigated with antibiotic saline. Deep tissue closure was done with 2-0 Vicryl. Subcutaneous closure was done with 4-0 Monocryl. And skin closure done with stainless ricki. An Arthrex jumpstart dressing was placed over the lateral ankle incision, and then a bulky dry dressings applied to the left ankle. The tourniquet was released and capillary refill return to all digits on the left foot. Then the patient was placed in a well-padded, well molded plaster posterior mold/sugar tong splint. Ankle was held in neutral dorsiflexion and slight inversion as it dried. Once the splint was fully dried, anesthesia was reversed and the patient was taken recovery with vital signs stable.
[2021-11-25] MEDS: HYDROmorphone 0.5 MG/0.5 ML SYRINGE IVP PRN ×4 (14:09→15:00)
[2021-11-25] MEDS ORDERED: KETOROLAC 15 MG/ML 1 ML VIAL IVP ONE (14:10)
[2021-11-25] MEDS ORDERED: ONDANSETRON 4 MG/2 ML VIAL IVP ONE (14:30)
--- NOTE | 2021-11-25 14:35 | P.ANPRN ---
Procedure Note - Anesthesia - Nerve Block Performed Left Popliteal Single Time Out Performed: Yes (1154) Date of Procedure: 11/25/21 Procedure Start Time: 11:55 Procedure Stop Time: 12:01 Location of Patient: PreOp Indication: Acute Post-Operative Pain, Requested by Surgeon Specifically requested for management of pain by DrRyan: Jose Lima Sedation Type: Sedate with meaningful contact maintained Preparation: Sterile Prep Position: Right Lateral Catheter: None Needle Types: Pajunk Needle Gauge: 21 Ultrasound used to visualize needle placement: Yes Ultrasound used to observe medication spread: Yes Injectate: 0.5% Ropivacaine (see comment for volume) (15cc + 10cc nacl pf) Blood Aspirated: No Pain Paresthesia on Injection Noted: No Resistance on Injection: Normal Image Stored and Saved: Yes Events: Uneventful and Well Tolerated
--- NOTE | 2021-11-25 14:37 | P.ANPRN ---
Procedure Note - Anesthesia - Nerve Block Performed Left Adductor Canal Single Time Out Performed: Yes (1154) Date of Procedure: 11/25/21 Procedure Start Time: 12:02 Procedure Stop Time: 12:05 Location of Patient: PreOp Indication: Acute Post-Operative Pain, Requested by Surgeon Specifically requested for management of pain by DrRyan: Jose Lima Sedation Type: Sedate with meaningful contact maintained Preparation: Sterile Prep Position: Supine Catheter: None Needle Types: Pajunk Needle Gauge: 21 Ultrasound used to visualize needle placement: Yes Ultrasound used to observe medication spread: Yes Injectate: 0.5% Ropivacaine (see comment for volume) (15cc + 10cc nacl pf) Blood Aspirated: No Pain Paresthesia on Injection Noted: No Resistance on Injection: Normal Image Stored and Saved: Yes Events: Uneventful and Well Tolerated
[2021-11-25 15:14] VITALS: RESP 18
[2021-11-25] MEDS ORDERED: HYDROcodone/APAP 7.5-325MG 1 EACH TAB PO ONE (15:20)
[2021-11-25] MEDS ORDERED: HYDROcodone/APAP 7.5-325MG 1 EACH TAB ONE (15:21)
[2021-11-25 15:33] VITALS: BP 155/99; PULSE 68
== END 2021-11-25 15:50 | disposition home or self-care (01) ==
LOC: OR 10:45
PROVIDERS: ATTEND Podiatrist
DX: S82.432A Displaced oblique fracture of shaft of left fibula, initial encounter for closed fracture (principal); S93.432A Sprain of tibiofibular ligament of left ankle, initial encounter; S93.422A Sprain of deltoid ligament of left ankle, initial encounter; W11.XXXA Fall on and from ladder, initial encounter; I10 Essential (primary) hypertension; G43.909 Migraine, unspecified, not intractable, without status migrainosus; Z87.891 Personal history of nicotine dependence; Z79.899 Other long term (current) drug therapy; Z88.0 Allergy status to penicillin; Z91.012 Allergy to eggs; Z91.040 Latex allergy status; Z88.8 Allergy status to other drugs, medicaments and biological substances; Z91.09 Other allergy status, other than to drugs and biological substances; Z98.890 Other specified postprocedural states; Z90.49 Acquired absence of other specified parts of digestive tract
CPT/HCPCS: 64447; 64445; 76942; 73600; 27784; 27829; C1713; J2250; J1100; J0690; J2405; J2001; J3010; J1170 ×2; J2795; J1885; J2704

== ENCOUNTER 2022-05-22 07:38 | Emergency (ER) | payer OTHER ==
[2022-05-22 07:52] VITALS: BP 144/86; PULSE 80; RESP 16; TEMP 97.7
[2022-05-22] MEDS ORDERED: METOCLOPRAMIDE 5 MG/ML 2 ML VIAL IM STA (08:06)
[2022-05-22] MEDS ORDERED: KETOROLAC 15 MG/ML 1 ML VIAL IM STA (08:06)
[2022-05-22] MEDS ORDERED: HYDROmorphone 1 MG/ML 1 ML SYRINGE IM STA (08:06)
--- NOTE | 2022-05-22 08:09 | ED ---
General Adult HPI - General Chief complaint: Headache Stated complaint: migraine Time Seen by Provider: 05/22/22 07:54 Source: patient, RN notes reviewed Mode of arrival: ambulatory Limitations: no limitations - History of Present Illness Initial comments: Patient is a pleasant 46-year-old male presenting to the emergency department with concerns with headache. Patient does have headaches similar to this his whole life that he associates with migraines. Patient has had multiple previous evaluations for this including neurologist and imaging. Headache is similar to chronic headaches. This headache started around 4 days ago. Patient did vomit once. Patient does have some photophobia. Discomfort is more right side of the head. Headache was not sudden onset. No confusion or weakness. No fever. - Related Data Home Medications Medication Instructions Recorded Confirmed SUMAtriptan succinate [Imitrex] 20 mg PO DIRECTED PRN 01/13/21 05/18/22 Mesalamine 800 mg PO TID 05/17/22 05/18/22 Allergies Allergy/AdvReac Type Severity Reaction Status Date / Time alcohol Allergy Cough Verified 05/22/22 07:48 cat dander Allergy Unknown Verified 05/22/22 07:48 latex Allergy Blisters Verified 05/22/22 07:48 mold Allergy HEADACHE Verified 05/22/22 07:48 Penicillins Allergy Migraines Verified 05/22/22 07:48 soy Allergy Unknown Verified 05/22/22 07:48 eggs Allergy Nausea & Uncoded 05/22/22 07:48 Vomiting & Diarrhea tape Allergy Swelling Uncoded 05/22/22 07:48 Review of Systems ROS Statement: Those systems with pertinent positive or pertinent negative responses have been documented in the HPI. ROS Other: All systems not noted in ROS Statement are negative. Constitutional: Denies: fever Eyes: Denies: eye pain ENT: Denies: ear pain Respiratory: Denies: cough Cardiovascular: Denies: chest pain Endocrine: Denies: fatigue Gastrointestinal: Reports: as per HPI. Denies: abdominal pain Genitourinary: Denies: dysuria Musculoskeletal: Denies: back pain Skin: Denies: rash Neurological: Reports: as per HPI, headache Past Medical History Past Medical History: Eye Disorder, Hearing Disorder / Deafness, Hypertension Additional Past Medical History / Comment(s): Frequent migranes r/t allergies, hypoglycemia, hx ruptured right ear drum, hard of hearing in right ear. .- MACULAR DEGENERATION History of Any Multi-Drug Resistant Organisms: None Reported Past Surgical History: Appendectomy, Orthopedic Surgery Additional Past Surgical History / Comment(s): Right rotator cuff repair, fatty tumors removed from right chest and left hip. Past Anesthesia/Blood Transfusion Reactions: No Reported Reaction Past Psychological History: No Psychological Hx Reported Smoking Status: Former smoker Past Alcohol Use History: None Reported Past Drug Use History: None Reported - Past Family History Mother Family Medical History: Cancer General Exam Limitations: no limitations General appearance: alert Head exam: Present: atraumatic Eye exam: Present: normal appearance, PERRL, EOMI Neck exam: Present: normal inspection. Absent: meningismus Respiratory exam: Present: normal lung sounds bilaterally Cardiovascular Exam: Present: regular rate, normal rhythm GI/Abdominal exam: Present: soft. Absent: tenderness Extremities exam: Present: normal inspection, full ROM Neurological exam: Present: alert, oriented X3, CN II-XII intact. Absent: motor sensory deficit Expanded Neurological exam: Present: protecting the airway Speech: Present: fluid speech Motor strength exam: RUE: 5, LUE: 5, RLE: 5, LLE: 5 Eye Response: (4) open spontaneously Motor Response: (6) obeys commands Verbal Response: (5) oriented Psychiatric exam: Present: normal affect, normal mood Skin exam: Present: normal color Course Vital Signs 05/22/22 07:48 Temperature 97.7 F Pulse Rate 80 Respiratory 16 Rate Blood Pressure 144/86 O2 Sat by Pulse 99 Oximetry Disposition Clinical Impression: Headache Disposition: HOME SELF-CARE Condition: Stable Instructions (If sedation given, give patient instructions): Acute Headache (ED) Additional Instructions: Please do follow-up to primary care physician in the next couple days for recheck. Please also follow-up with your neurologist. Return for fever, confusion or weakness, worsening or changing symptoms or any other concerns. No driving this morning. Is patient prescribed a controlled substance at d/c from ED?: No Referrals: Keturah Ruiz MD [Primary Care Provider] - 1-2 days Time of Disposition: 08:09
== END 2022-05-22 08:54 | disposition home or self-care (01) ==
LOC: EC 07:38
DX: R51.9 Headache, unspecified (principal); H91.90 Unspecified hearing loss, unspecified ear; I10 Essential (primary) hypertension; Z87.891 Personal history of nicotine dependence; Z91.040 Latex allergy status; Z88.0 Allergy status to penicillin; Z91.012 Allergy to eggs; Z91.048 Other nonmedicinal substance allergy status; Z91.018 Allergy to other foods; Z88.8 Allergy status to other drugs, medicaments and biological substances
CPT/HCPCS: 99283; 96372; J2765; J1170; J1885

== ENCOUNTER → 2022-06-03 | Outpatient (CLI) | payer OTHER ==
[2022-06-03 14:09] VITALS: BP 145/89; PULSE 76; RESP 18; TEMP 98.9
--- NOTE | 2022-06-03 14:36 | P.PAINPG ---
PQRS Measure Charge Sheet Comment: A 46 yr old male with a history of severe and chronic DURON pain secondary to cervical degenerative disc diseases, occipital neuralgia and cervicogenic DURON presents today for evaluation s/p BL JAVI injection. Pt states he experienced 100% pain relief x 1 days s/p procedure. Pain level is currently at 8/10 in i ntensity, constant, localized in the base of the head, sharp in character w shooting towards the BL scalp to the top of the head. Pain is provoked by palpation and head movements (hyperextension, rotation, lateral flexion). Pain is alleviated with medications (Imitrex), topicals, injections, PT x 2 wks in 2020 which was ineffective, chiropractic treatments as needed, repositioning, home massage and rest. Interventional pain procedures completed include BL JAVI x4 Patient is currently on Imitrex Patient denies any side effects of the medication(s), denies excessive drowsiness or sleepiness, denies suicidal ideation and reports that the current pain medication is helping to control the pain and improve activities of daily living. Patient denies any motor or sensory deficits. Patient denies any fever or night sweats, denies any change in the bowel movements or urination. Physical Examination: -Constitutional: Cooperative. Not in acute distress . - Neurologic: Cranial nerve II to XII intact. No focal neurological deficits. - Psychatric: Alert & oriented x 3. Matching mood & appropriate affect. Judgment and insight intact. - Musculoskeletal: Cervical spine: +BL TTP over C2-C3 C3-C4 Muscle bulk/ tone/ strength in the bilateral upper extremities normal Vertebral body tenderness to palpation over Spurling test positive Distraction test positive Facet loading test positive Thoracic spine Muscle bulk / tone/ strength in the bilateral paraspinal muscles normal Vertebral body tender to palpation over Facet loading test positive Lumbar spine: Motor bulk/ tone/ strength lower extremities , thigh and legs : 5/5 Deep tendon reflexes : Normal Knee Jerk. Normal Ankle Jerk . Vertebral body tenderness to palpation over Lumbar Facet Loading Test positive Straight Leg Raise: positive at 30 degrees right side/ left side Gaenslen's Test positive Sacral spine : Severe tenderness over the Sacroiliac joint: right side / left side Range of motion: Flexion of the lumbar spine <60 degrees Range of motion: Extension of the lumbar spine <20 degrees Gaenslen's Test positive Billy's Test positive Graham test: positive right side / left side Thigh Thrust Test Sacral Thrust Test Assessment and plan: Chronic neck pain secondary to cervical degenerative disc disease, occiptal neuralgia, cervicogenic DURON Recommendation of BL C2-3, C3-4 MBB #1. May need a series of injections, up to RFA, for optimal pain relief. Risks, benefits of procedure discussed and pt verbalized understanding. Admits to anticoagulant use or medical history of diabetes. Protocol for discontinuation/ continuation of medications jose m procedure discussed. All patient questions answered MAPS reviewed and it was appropriate. Prescription refill for Fiorinol #15 w 1 RF I have spent less than 30 minutes on patient care today. Dr Mead was available by phone for the evaluation of this patient. The time was used to review the medical records including relevant urine studies and Prescription history (MAPs), review of the available imaging, evaluation and examination of the patient, coordination of care with the medical staff and if applicable referring physicians, as well as creation of the medical record PQRS Narrative: Smoking Status Former smoker Hx Alcohol Use (MH) No Home Medications: Ambulatory Orders SUMAtriptan succinate [Imitrex] 20 mg PO DIRECTED PRN 01/13/21 Mesalamine 800 mg PO TID 05/17/22 Butalb/Acetaminophen/Caffeine [Fioricet 50-300-40 mg Capsule] 1 each PO Q48H PRN 30 Days #15 cap 06/03/22 Controlled Substance Measures - Controlled Substance Measures Is patient prescribed a controlled substance at discharge?: No
== END ==
LOC: PNWHC3 13:41
PROVIDERS: ATTEND Specialist
DX: M50.30 Other cervical disc degeneration, unspecified cervical region (principal); M54.81 Occipital neuralgia; G89.29 Other chronic pain; Z79.01 Long term (current) use of anticoagulants; E11.9 Type 2 diabetes mellitus without complications; Z79.4 Long term (current) use of insulin; Z87.891 Personal history of nicotine dependence; Z88.0 Allergy status to penicillin; Z91.040 Latex allergy status; Z91.048 Other nonmedicinal substance allergy status; Z91.09 Other allergy status, other than to drugs and biological substances; Z91.018 Allergy to other foods; Z91.012 Allergy to eggs
CPT/HCPCS: 99211

== ENCOUNTER 2022-07-16 05:59 | Day surgery (SDC) | payer OTHER ==
[2022-07-15 09:15] VITALS: BMI 25.1
[~2022-07-16 05:59] MED LIST changes: -DEXAMETHASONE SOD PHOSPHATE 4 MG/ML 1 ML VIAL IV ONE; +LIDOCAINE 1% (10MG/ML) FOR IV START INTRADERMA PRN; -ONDANSETRON 4 MG/2 ML VIAL IVP ONE
[2022-07-16 06:19] VITALS: TEMP 97
[2022-07-16] MEDS ORDERED: fentaNYL (PF) 50 MCG/1 ML VIAL IVP ONE (06:42)
[2022-07-16] MEDS ORDERED: fentaNYL (PF) 50 MCG/ML 2 ML AMP ONE (07:01)
[2022-07-16] MEDS ORDERED: ROPIVACAINE 5 MG/ML 20 ML AMPULE ONE (07:01)
[2022-07-16] MEDS ORDERED: DEXAMETHASONE SOD PHOSPHATE 10 MG/ML 1 ML VIAL ONE (07:01)
[2022-07-16] MEDS ORDERED: MIDAZOLAM 2 MG/2 ML VIAL ONE (07:01)
[2022-07-16] MEDS ORDERED: LACTATED RINGERS 1,000 ML IV SCH (07:15)
[2022-07-16] MEDS ORDERED: LACTATED RINGERS 500 ML IV ONE (07:30)
--- NOTE | 2022-07-16 07:32 | P.PCN ---
Date of Procedure: 07/16/22 Description of Procedure: PREOPERATIVE DIAGNOSIS: Cervical spondylosis without myelopathy, and occipital neuralgia POSTOPERATIVE DIAGNOSIS: Cervical spondylosis without myelopathy, and occipital neuralgia PROCEDURE : Bilateral cervical C2 -C3, and C3-C4 medial branch block under fluoroscopic guidance. SURGEON: Iker Layton [employer] BURNER: None ANESTHESIA: Local anesthesia , and IV sedation : Versed 2 mg, and fentanyl 100 g EBL: None Image: Fluoroscopic image saved to electronic medical records PROCEDURE INDICATION: The patient with neck pain returns here for diagnostic medial branch block, failed with the conservative therapy. PROCEDURE DESCRIPTION: The patient was seen and identified in the preoperative area. Risks, benefits, complications, and alternatives were discussed with the patient; the patient agreed to proceed with the procedure and signed the consent. Vital signs were stable. Standard ASA monitoring applied. Patient was taken to the OR and time out was completed. The patient was placed in the prone position on the procedure table and cervical area was prepped and draped in the usual sterile fashion. Critical pause was taken. Vital signs were closely monitored during the procedure. Using anteroposterior fluoroscopic with 15 cephalad tilt Waists of C2, C3, and C4 identified and marked with the sterile marker. Skin and subcutaneous tissue injected with a total of 3 mL of lidocaine 1% using a 27-gauge 1-1/2 inch needle. Using a 25-gauge 3-1/2 inch spinal needles 3. Each spinal needle entered to the corresponding waists. Using cross-table lateral fluoroscopy, the centroid of the trapezoid of C2, C3, and C4, . [place] were guided by fluoroscopy to the centroid of the trapezoid of C2, C3, and C4. After negative aspiration for blood and CSF, 0.5 mL of block solution injected at each level. The block solution containing 2 ml of 0.5% ropivacaine preservative free and 10 mg dexamethasone (3ml total mixture) . [place] were removed intact. Entire procedure repeated on the left side . [place] were withdrawn intact. Skin was cleansed and bandages were applied. COMPLICATIONS: None. COMMENTS: DISPOSITION/PLAN: The patient was placed in a supine position and transferred to the recovery area in a stable condition for observation and was discharged from the recovery room after meeting discharge criteria. Home discharge instructions given to the patient by the staff. The patient was reexamined prior to discharge. The patient will schedule a repeat procedure in 2-4 weeks.
[2022-07-16 07:35] VITALS: RESP 16
[2022-07-16 07:46] VITALS: BP 124/87; PULSE 72
--- NOTE | 2022-07-16 10:10 | FL ---
EXAMINATION TYPE: FL guided pain mgmt statistic DATE OF EXAM: 07/16/2022 HISTORY: Fluoroscopy time 34 seconds of fluoroscopy provided. IMPRESSION: 1. Fluoroscopy time.
== END 2022-07-16 08:00 | disposition home or self-care (01) ==
LOC: ORPAIN 05:59
DX: M47.812 Spondylosis without myelopathy or radiculopathy, cervical region (principal); Z88.0 Allergy status to penicillin; Z91.040 Latex allergy status; Z91.048 Other nonmedicinal substance allergy status; Z79.52 Long term (current) use of systemic steroids; Z79.899 Other long term (current) drug therapy; Z87.19 Personal history of other diseases of the digestive system; Z90.49 Acquired absence of other specified parts of digestive tract; Z98.890 Other specified postprocedural states
CPT/HCPCS: 64490; 64491; J2250; J1100; J3010 ×2; J2795

== ENCOUNTER → 2022-08-16 | Outpatient (CLI) | payer OTHER ==
[2022-08-16 14:27] VITALS: BP 130/85; PULSE 84; RESP 18
--- NOTE | 2022-08-16 14:48 | P.PAINPG ---
PQRS Measure Charge Sheet Comment: A 47 yr old male with a history of severe and chronic neck pain secondary to cervical DDD and spondylosis with facet arthropathy without myelopathy presents today for medication refills and evaluation s/p BL facet block of the medial branches C2-C3, C3-C4 #1. Pt states he experienced 100% pain relief x 1 hr s/p procedure. Pain level is provoked at 8 /10 in intensity, constant, localized in the cervical spine, sharp/ shooting towards the scalp. Pain is provoked by hyperextension. Pain is alleviated with PT in February 2022, home stretches at home, alternating heat & ice, medications, topicals, repositioning and rest. Interventional pain procedures completed include BL MBB C2-C4 x1 Patient is currently on Fioricet, Imitrex Patient denies any side effects of the medication(s), denies excessive drowsiness or sleepiness, denies suicidal ideation and reports that the current pain medication is helping to control the pain and improve activities of daily living. Patient denies any motor or sensory deficits. Patient denies any fever or night sweats, denies any change in the bowel movements or urination. Physical Examination: -Constitutional: Cooperative. Not in acute distress . - Neurologic: Cranial nerve II to XII intact. No focal neurological deficits. - Psychatric: Alert & oriented x 3. Matching mood & appropriate affect. Judgment and insight intact. - Musculoskeletal: Cervical spine: Muscle bulk/ tone/ strength in the bilateral upper extremities normal Vertebral body tenderness to palpation over Spurling test positive Distraction test positive Facet loading test positive TTP over BL C2-C3, C3-C4 facets Thoracic spine Muscle bulk / tone/ strength in the bilateral paraspinal muscles normal Vertebral body tender to palpation over Facet loading test positive Lumbar spine: Motor bulk/ tone/ strength lower extremities , thigh and legs : 5/5 Deep tendon reflexes : Normal Knee Jerk. Normal Ankle Jerk . Vertebral body tenderness to palpation over Lumbar Facet Loading Test positive Straight Leg Raise: positive at 30 degrees right side/ left side Gaenslen's Test positive Sacral spine : Severe tenderness over the Sacroiliac joint: right side / left side Range of motion: Flexion of the lumbar spine <60 degrees Range of motion: Extension of the lumbar spine <20 degrees Gaenslen's Test positive Graham test: positive right side / left side Thigh Thrust Test Sacral Thrust Test Assessment and plan: Chronic neck pain secondary to cervical DDD, spondylosis with facet arthropathy without myelopathy Recommendation of BL facet block of the medial branches C2-C3, C3-C4 #2. May need a series of injections, up until RFA, for optimal pain relief. Risks, benefits of procedure discussed and pt verbalized understanding. Denies anticoagulant use or medical history of diabetes. Chronic and current use of high-risk medication (Opioids). The patient was counseled about risk of opioid use, psychological risk associated with opioids and was orally counseled to not overuse , divert or sell medications. Pt is to store medication in a safe location. The patient is counseled against driving while using narcotic medications and also not to use alcohol or any illicit recreational drugs. Patient verbalized understanding that the lack of compliance will result in failure to renew narcotic prescription(s) as well as possible discharge from the clinic Diagnoses, prognosis and treatment options including but not limited to physical therapy, surgical interventions, interventional therapies and medication management including narcotics and adjuvant medication were discussed. All patient questions answered MAPS reviewed and it was appropriate. Prescription refill for Fioricet #30 w 1 RF. Narcotic agreement signed today 08/16/22. I have spent less than 30 minutes on patient care today. Dr Mead was available by phone for the evaluation of this patient. The time was used to review the medical records including relevant urine studies and Prescription history (MAPs), review of the available imaging, evaluation and examination of the patient, coordination of care with the medical staff and if applicable referring physicians, as well as creation of the medical record - Pain Location Neck Non-Pharmacological Interventions: Heat, Home Exercise, Ice, Inactivity, Physical Therapy, Position/Reposition, Stretching Pharmacological Interventions: Block, PRN Medication, Topical Medication PQRS Narrative: Smoking Status Former smoker Hx Alcohol Use (MH) No Home Medications: Ambulatory Orders SUMAtriptan succinate [Imitrex] 20 mg PO DIRECTED PRN 01/13/21 Cyanocobalamin (Vitamin B-12) [Vitamin B-12] 1,000 mcg PO DAILY 07/15/22 Magnesium 200 mg PO DAILY 07/15/22 Butalb/Acetaminophen/Caffeine [Fioricet 50-300-40 mg Capsule] 1 each PO Q24H PRN 30 Days #30 cap 08/16/22 Controlled Substance Measures - Controlled Substance Measures Is patient prescribed a controlled substance at discharge?: No
== END ==
LOC: PNWHC3 14:03
PROVIDERS: ATTEND Specialist
DX: M47.812 Spondylosis without myelopathy or radiculopathy, cervical region (principal); M50.30 Other cervical disc degeneration, unspecified cervical region; G89.29 Other chronic pain; Z79.891 Long term (current) use of opiate analgesic; Z91.048 Other nonmedicinal substance allergy status; Z91.040 Latex allergy status; Z88.0 Allergy status to penicillin; Z91.018 Allergy to other foods; Z91.012 Allergy to eggs; Z77.120 Contact with and (suspected) exposure to mold (toxic); Z87.891 Personal history of nicotine dependence
CPT/HCPCS: 99211

== ENCOUNTER → 2022-10-20 | Outpatient (CLI) | payer OTHER ==
[2022-10-20 14:07] VITALS: BP 129/72; PULSE 85; RESP 18; TEMP 98.9
--- NOTE | 2022-10-20 15:15 | P.PAINPG ---
PQRS Measure Charge Sheet Comment: A 47 yr old male with a history of severe and chronic neck pain secondary to cervical DDD and spondylosis with facet arthropathy without myelopathy presents today for evaluaiton s/p BL facet block of the medial branches C2-3, C3-C4 #2. Pt states he experienced 100% pain relief x 1 wk s/p procedure. Pain level is provoked at 5/10 in intensity, constant, localized in the cervical spine, sharp in character w shooting towards head, temples and eyes. Pain is provoked by allergies. Pain is alleviated with heat, ice, medications (Imitrex, Fioricet, Zanaflex), injections, dark/ quiet room, repositioning and rest. Interventional pain procedures completed include BL MBB C2-C4 x2 Patient is currently on Imitrex, Fioricet, Zanaflex Patient denies any side effects of the medication(s), denies excessive drowsiness or sleepiness, denies suicidal ideation and reports that the current pain medication is helping to control the pain and improve activities of daily living. Patient denies any motor or sensory deficits. Patient denies any fever or night sweats, denies any change in the bowel movements or urination. Physical Examination: -Constitutional: Cooperative. Not in acute distress . - Neurologic: Cranial nerve II to XII intact. No focal neurological deficits. - Psychatric: Alert & oriented x 3. Matching mood & appropriate affect. Judgment and insight intact. - Musculoskeletal: Cervical spine: Muscle bulk/ tone/ strength in the bilateral upper extremities normal Vertebral body tenderness to palpation over Spurling test positive Distraction test positive Facet loading test positive TTP over BL C2-C3, C3-C4 facets Thoracic spine Muscle bulk / tone/ strength in the bilateral paraspinal muscles normal Vertebral body tender to palpation over Facet loading test positive TTP Lumbar spine: Motor bulk/ tone/ strength lower extremities , thigh and legs : 5/5 Deep tendon reflexes : Normal Knee Jerk. Normal Ankle Jerk . Vertebral body tenderness to palpation over Lumbar Facet Loading Test positive Straight Leg Raise: positive at 30 degrees right side/ left side Gaenslen's Test positive Sacral spine : Severe tenderness over the Sacroiliac joint: right side / left side Range of motion: Flexion of the lumbar spine <60 degrees Range of motion: Extension of the lumbar spine <20 degrees Gaenslen's Test positive R / L Graham test: positive right side / left side Thigh Thrust Test positive R / L Sacral Thrust Test positive R/ L Assessment and plan: Chronic neck pain secondary to cervical DDD, spondylosis with facet arthropathy without myelopathy Recommendation of BL RFA C2-C3, C3-C4. Pt exhibited sufficient and substantial pain relief w prior facet blocks of hte medial branches. Risks, benefits of procedure discussed and pt verbalized understanding. Admits to anticoagulant use or medical history of diabetes. Protocol for discontinuation/ continuation of medications jose m procedure discussed. All questions answered. I have spent less than 30 minutes on patient care today. Dr Mead was available by phone for the evaluation of this patient. The time was used to review the medical records including relevant urine studies and Prescription history (MAPs), review of the available imaging, evaluation and examination of the patient, coordination of care with the medical staff and if applicable referring physicians, as well as creation of the medical record PQRS Narrative: Smoking Status Former smoker Hx Alcohol Use (MH) No Home Medications: Ambulatory Orders SUMAtriptan succinate [Imitrex] 100 mg PO DIRECTED PRN 01/13/21 Cyanocobalamin (Vitamin B-12) [Vitamin B-12] 1,000 mcg PO DAILY 07/15/22 Magnesium 200 mg PO DAILY 07/15/22 Butalb/Acetaminophen/Caffeine [Fioricet 50-300-40 mg Capsule] 1 each PO Q24H PRN 30 Days #30 cap 08/16/22 Controlled Substance Measures - Controlled Substance Measures Is patient prescribed a controlled substance at discharge?: No
== END ==
LOC: PNWHC3 13:09
PROVIDERS: ATTEND Specialist
DX: G89.29 Other chronic pain (principal); M51.36 Other intervertebral disc degeneration, lumbar region; M47.816 Spondylosis without myelopathy or radiculopathy, lumbar region; Z87.891 Personal history of nicotine dependence; Z91.048 Other nonmedicinal substance allergy status; Z91.040 Latex allergy status; Z88.0 Allergy status to penicillin; Z91.012 Allergy to eggs
CPT/HCPCS: 99211

== ENCOUNTER 2022-11-05 06:02 | Day surgery (SDC) | payer OTHER ==
[2022-11-03 11:19] VITALS: BMI 28.1
[2022-11-05] MEDS ORDERED: LIDOCAINE 1% (10MG/ML) FOR IV START INTRADERMA PRN (06:07)
[2022-11-05] MEDS ORDERED: LACTATED RINGERS 1,000 ML IV SCH (06:07)
[2022-11-05 06:24] VITALS: TEMP 97.8
[2022-11-05] MEDS ORDERED: ROPIVACAINE 5 MG/ML 20 ML AMPULE ONE (06:55)
[2022-11-05] MEDS ORDERED: methylPREDNISolone ACETATE 40 MG/ML 1 ML VIAL ONE (06:55)
--- NOTE | 2022-11-05 07:30 | P.PCN ---
Date of Procedure: 11/05/22 Procedure(s) Performed: PREOPERATIVE DIAGNOSIS:1- Cervical spondylosis with Facet Arthropathy without myelopathy. 2-occipital neuralgia. 3-cervicogenic headache POSTOPERATIVE DIAGNOSIS:1- Cervical spondylosis with Facet Arthropathy without myelopathy. 2-occipital neuralgia. 3-cervicogenic headache PROCEDURES: Radiofrequency thermocoagulation Bilateral C2 ,C3, C4 medial branch with Fluroscopy [place](fluoroscopy was available in Radiology department ) (to denervate the facet joint at bilateral C2- 3 ,C3- 4 ) ANESTHESIA: Monitored anesthesia care as per anesthesia department . EBL: Minimal PROCEDURE INDICATION: The patient with neck pain secondary to cervical arthropathy who had more than 50% relief of her pain with previous diagnostic cervical medial branch block. PROCEDURE DESCRIPTION / TECHNIQUE: The patient was seen and identified in the preoperative area. Risks, benefits, complications, and alternatives were discussed with the patient, the patient agreed to proceed with the procedure and signed the consent. IV was started. Vital signs remained stable throughout the procedure. Patient was taken to the OR and time out was completed. The patient was placed in the prone position on the procedure table. A pillow was placed under the patients chest to increase the cervical interlaminar space. The cervical area was prepped and draped in the usual sterile fashion. Critical pause was taken. V ital signs were closely monitored during the procedure. Conscious sedation was used during the procedure to decrease patients anxiety. Using cross-table lateral fluoroscopy, the centroid of the trapezoid of Right C2 ,C3, C4, were identified, marked, and localized with 1% lidocaine. Subsequently, a [id number] radiofrequency cannula with a 10-mm active tip was advanced guided by fluoroscopy to the centroid of the trapezoid of Right C2 , C3, C4 . Needle tip position was confirmed at the centroid of the trapezoids of Right C2 ,C3, C4, with anteroposterior fluoroscopy. Each site then underwent sensory testing at 50 Hz and 0 to 1 volt and motor testing at 2 Hz and 0 to 3 volt with local stimulation, but no radicular symptoms down the arm. Thereafter each sites underwent radiofrequency thermocoagulation at 80 degrees celsius for 90 seconds after injecting 0.5 ml of PF Ropivacaine 0.5 %. After thermocoagulation, 1 ml of the block solution containing Depo-Medrol 20 mg and 3 mL of preservative-free normal saline was injected at the Right C2 ,C3, C4, levels after negative aspiration of CSF and blood and with no paresthesias. Cannulas were retracted while injecting lidocaine 1% until the needle is out. Then the exact same procedure was done for the left side at C2, C3 ,and C4 levels Skin was cleansed and bandages were applied. COMPLICATIONS: No acute complications. DISPOSITION / PLANS: The patient was placed in a supine position and transferred to the recovery area in a stable condition for observation and was discharged from the recovery room after meeting discharge criteria. Home discharge instructions given to the patient by the staff. The patient was reexamined prior to discharge. The patient will schedule a follow up in the clinic in 2-4 weeks.
[2022-11-05] MEDS ORDERED: IV FLUID CONTINUATION 650 ML IV ONE (07:31)
--- NOTE | 2022-11-05 07:47 | FL ---
EXAMINATION TYPE: FL guided pain mgmt statistic DATE OF EXAM: 11/05/2022 HISTORY: Fluoroscopy time 0.73326 DAP of fluoroscopy provided. IMPRESSION: 1. Fluoroscopy time.
[2022-11-05 07:50] VITALS: BP 132/89; PULSE 79; RESP 20
[2022-11-05] MEDS ORDERED: fentaNYL (PF) 50 MCG/ML 2 ML AMP ONE (09:55)
[2022-11-05] MEDS ORDERED: MIDAZOLAM 2 MG/2 ML VIAL ONE (09:55)
== END 2022-11-05 08:10 ==
LOC: ORPAIN 06:02
PROVIDERS: ATTEND Specialist
DX: M47.812 Spondylosis without myelopathy or radiculopathy, cervical region (principal); M54.81 Occipital neuralgia; G44.86 Cervicogenic headache; I10 Essential (primary) hypertension; G43.909 Migraine, unspecified, not intractable, without status migrainosus; Z79.899 Other long term (current) drug therapy; Z88.0 Allergy status to penicillin; Z91.048 Other nonmedicinal substance allergy status; Z91.012 Allergy to eggs
CPT/HCPCS: 64633; 64634; J2250; J1030; J3010; J2795

== ENCOUNTER → 2022-12-15 | Outpatient (CLI) | payer OTHER ==
[2022-12-15 14:54] VITALS: BP 148/89; PULSE 78; RESP 18; TEMP 97.7
--- NOTE | 2022-12-15 15:25 | P.PAINPG ---
PQRS Measure Charge Sheet Comment: A 47 yr old male with a history of severe and chronic neck pain x yrs secondary to cervical DDD and spondylosis with facet arthropathy without myelopathy presents today for evaluation s/p BL RFA C2-C3, C3-C4. Pt states he experienced 90 % pain relief s/p procedure. Pain level is provoked at 1/10 in intensity, constant, localized in the cervical spine, burning in character w/o shooting pain. Pain is provoked by hyperextension. Pain is alleviated with injections, repositioning and rest. Interventional pain procedures completed include BL RFA C2-C4 Patient is currently on DENIES Patient denies any side effects of the medication(s), denies excessive drowsiness or sleepiness, denies suicidal ideation and reports that the current pain medication is helping to control the pain and improve activities of daily living. Patient denies any motor or sensory deficits. Patient denies any fever or night sweats, denies any change in the bowel movements or urination. Physical Examination: -Constitutional: Cooperative. Not in acute distress . - Neurologic: Cranial nerve II to XII intact. No focal neurological deficits. - Psychatric: Alert & oriented x 3. Matching mood & appropriate affect. Judgment and insight intact. - Musculoskeletal: Cervical spine: Muscle bulk/ tone/ strength in the bilateral upper extremities normal Vertebral body tenderness to palpation over Spurling test positive Distraction test positive Facet loading test positive TTP Thoracic spine Muscle bulk / tone/ strength in the bilateral paraspinal muscles normal Vertebral body tender to palpation over Facet loading test positive TTP Lumbar spine: Motor bulk/ tone/ strength lower extremities , thigh and legs : 5/5 Deep tendon reflexes : Normal Knee Jerk. Normal Ankle Jerk . Vertebral body tenderness to palpation over Lumbar Facet Loading Test positive Straight Leg Raise: positive at 30 degrees right side/ left side Gaenslen's Test positive Sacral spine : Severe tenderness over the Sacroiliac joint: right side / left side Range of motion: Flexion of the lumbar spine <60 degrees Range of motion: Extension of the lumbar spine <20 degrees Gaenslen's Test positive R / L Graham test: positive right side / left side Thigh Thrust Test positive R / L Sacral Thrust Test positive R/ L Assessment and plan: Chronic neck pain secondary to cervical DDD, spondylosis with facet arthropathy without myelopathy Pt tolerated procedure well. He will manage residual pain and may return to clinic on an as needed basis. All questions answered. I have spent less than 30 minutes on patient care today. Dr Mead was available by phone for the evaluation of this patient. The time was used to review the medical records including relevant urine studies and Prescription history (MAPs), review of the available imaging, evaluation and examination of the patient, coordination of care with the medical staff and if applicable referring physicians, as well as creation of the medical record PQRS Narrative: Smoking Status Former smoker Hx Alcohol Use (MH) No Home Medications: Ambulatory Orders SUMAtriptan succinate [Imitrex] 100 mg PO DIRECTED PRN 01/13/21 Cyanocobalamin (Vitamin B-12) [Vitamin B-12] 1,000 mcg PO DAILY 07/15/22 Butalb/Acetaminophen/Caffeine [Fioricet 50-300-40 mg Capsule] 1 each PO Q24H PRN 30 Days #30 cap 08/16/22 Controlled Substance Measures - Controlled Substance Measures Is patient prescribed a controlled substance at discharge?: No
== END ==
LOC: PNWHC3 14:06
PROVIDERS: ATTEND Specialist
DX: M50.30 Other cervical disc degeneration, unspecified cervical region (principal); M47.812 Spondylosis without myelopathy or radiculopathy, cervical region; M54.81 Occipital neuralgia; Z87.891 Personal history of nicotine dependence; Z88.0 Allergy status to penicillin; Z91.012 Allergy to eggs; Z88.8 Allergy status to other drugs, medicaments and biological substances; Z91.040 Latex allergy status; Z91.09 Other allergy status, other than to drugs and biological substances
CPT/HCPCS: 99211